=== PATIENT | female | born 1970 | race Caucasian/White ===

== ENCOUNTER 2019-05-18 20:34 | Emergency (ER) | payer OTHER ==
[~2019-05-18] VITALS: Ht 165.1 cm; Wt 66.0 kg
[2019-05-18] MEDS ORDERED: ASPIRIN 81MG TABLET PO ONE (22:30)
[2019-05-18] MEDS ORDERED: VISCOUS LIDOCAINE 2% 15 ML UDC PO ONE (22:30)
[2019-05-18] MEDS ORDERED: MAGNESIUM/ALUMINUM HYDROXIDE/SIMETHICONE 30ML UDC PO ONE (22:30)
[2019-05-18 23:13] LABS: BASOPHILS % 0.7 % (0.0-2.0); EOSINOPHILS % 0.7 % (0.0-5.0); HEMATOCRIT. 32.5 % (36.0-48.0); LYMPHOCYTES % 32.1 % (20.0-50.0); MEAN CORPUSCULAR HEMOGLOBIN 29.6 pg (28.0-32.0); MEAN CORPUSCULAR VOLUME 87.7 fL (81.0-99.0); MEAN PLATELET VOLUME 9.1 fl (7.4-10.4); MONOCYTES % 6.4 % (2.0-8.0); NEUTROPHILS % 60.1 % (40.0-76.0); PLATELET 198 x1000/uL (130-400); RED BLOOD CELL COUNT 3.71 mill/uL (4.2-5.4); RED CELL DISTRIBUTION WIDTH 13.2 % (11.6-14.6)
[2019-05-18 23:16] LABS: CHLORIDE 108 mEq/L (98-107)
[2019-05-19 02:40] VITALS: BP 102/50
== END 2019-05-19 02:40 | disposition home or self-care (01) ==
LOC: ER 20:34
DX: R07.89 Other chest pain (principal)
CPT/HCPCS: 36415; 71045; 80053; 83880; 84484; 85025; 93005; 99284; Z7610

== ENCOUNTER 2019-07-23 13:22 | Inpatient (IN) | payer OTHER ==
[~2019-07-23] VITALS: Ht 167.6 cm; Wt 56.5 kg
[2019-07-23 14:21] LABS: CLARITY URINE CLOUDY (CLEAR); COLOR URINE DARK YELLOW (YELLOW); KETONES URINE 1+ (NEGATIVE); LEUKOCYTE ESTERASE URINE 2+ (NEGATIVE); NITRITE URINE POSITIVE (NEGATIVE); OCCULT BLOOD URINE NEGATIVE (NEGATIVE); PH URINE 5.5 (4.5-8.0); PROTEIN URINE 1+ (NEGATIVE); SPECIFIC GRAVITY URINE 1.027 (1.005-1.030)
[2019-07-23 14:43] LABS: BASOPHILS % 0.7 % (0.0-2.0); EOSINOPHILS % 0.3 % (0.0-5.0); HEMATOCRIT. 45.7 % (36.0-48.0); HEMOGLOBIN. 15.3 g/dL (12.0-16.0); MEAN CORPUSCULAR HEMOGLOBIN 29.9 pg (28.0-32.0); MEAN CORPUSCULAR VOLUME 89.4 fL (81.0-99.0); MEAN PLATELET VOLUME 8.9 fl (7.4-10.4); MONOCYTES % 3.1 % (2.0-8.0); NEUTROPHILS % 83.9 % (40.0-76.0); PLATELET 224 x1000/uL (130-400); RED BLOOD CELL COUNT 5.11 mill/uL (4.2-5.4)
[2019-07-23] MEDS ORDERED: CEFTRIAXONE 1 G PREMIX 50 ML IV ONE (14:45)
[2019-07-23 14:47] LABS: CHLORIDE 105 mEq/L (98-107)
[2019-07-23 14:49] LABS: PROTHROMBIN TIME 10.9 sec (9.6-11.0)
[2019-07-23 14:53] LABS: HCG SCREEN NEGATIVE
[2019-07-23] MEDS ORDERED: MORPHINE SULFATE 4 MG/ML CPJ (NOT FOR IM USE) IV ONE (15:15)
[2019-07-23 16:30] VITALS: BP 132/54
[2019-07-23 16:47] VITALS: BP 132/54
[2019-07-23] MEDS ORDERED: FAMO-135 PO (17:03)
[2019-07-23] MEDS ORDERED: CLONIDINE 0.1MG TABLET PO PRN (17:30)
[2019-07-23] MEDS ORDERED: ACETAMINOPHEN 325MG TABLET PO PRN (17:30)
[2019-07-23] MEDS ORDERED: ONDANSETRON HCL 4MG/2ML INJ IV PRN (17:30)
[2019-07-23] MEDS ORDERED: PIPERACILLIN/TAZ 3.375G PREMIX 50 ML IV SCH (17:30)
[2019-07-23] MEDS: MORPHINE SULFATE 2 MG/ML CPJ (NOT FOR IM USE) IV PRN ×2 (18:02→22:20)
[2019-07-23] MEDS: LACTATED RINGERS 1,000 ML IV SCH (18:21)
[2019-07-23] MEDS ORDERED: POTASSIUM CHLORIDE INJ 40 MEQ in DEXT 5% WATER 250 ML IV NR (20:00)
[2019-07-23 20:20] VITALS: BP 125/52
[2019-07-23] MEDS: PIPERACILLIN/TAZOBACTAM 2.25 G in DEXTROSE 5% WATER 50 ML IV SCH (21:14)
[2019-07-23 23:55] VITALS: BP 127/60
[2019-07-24] MEDS: LACTATED RINGERS 1,000 ML IV SCH ×2 (02:11→09:30)
[2019-07-24] MEDS: PIPERACILLIN/TAZOBACTAM 2.25 G in DEXTROSE 5% WATER 50 ML IV SCH ×4 (02:11→20:49)
[2019-07-24] MEDS: MORPHINE SULFATE 2 MG/ML CPJ (NOT FOR IM USE) IV PRN ×3 (02:12→22:27)
[2019-07-24 04:00] VITALS: BP 119/51
[2019-07-24 06:04] LABS: BASOPHILS % 0.1 % (0.0-2.0); HEMATOCRIT. 38.6 % (36.0-48.0); HEMOGLOBIN. 13.2 g/dL (12.0-16.0); LYMPHOCYTES % 9.7 % (20.0-50.0); MEAN CORPUSCULAR HEMOGLOBIN 30.1 pg (28.0-32.0); MEAN CORPUSCULAR VOLUME 88.3 fL (81.0-99.0); MEAN PLATELET VOLUME 9.2 fl (7.4-10.4); MONOCYTES % 3.7 % (2.0-8.0); NEUTROPHILS % 86.5 % (40.0-76.0); PLATELET 234 x1000/uL (130-400); RED BLOOD CELL COUNT 4.38 mill/uL (4.2-5.4); RED CELL DISTRIBUTION WIDTH 13.8 % (11.6-14.6)
[2019-07-24 06:46] LABS: *AMPHETAMINES SCREEN URINE NEGATIVE (NEGATIVE)
[2019-07-24 06:47] LABS: *BARBITURATES SCREEN URINE NEGATIVE (NEGATIVE); *BENZODIAZEPINES SCREEN URINE NEGATIVE (NEGATIVE); *COCAINE SCREEN URINE NEGATIVE (NEGATIVE)
[2019-07-24 06:48] LABS: CANNABINOID URINE SCREEN NEGATIVE (NEGATIVE); METHADONE URINE SCREEN NEGATIVE (NEGATIVE); PHENCYCLIDINE URINE SCREEN NEGATIVE (NEGATIVE)
[2019-07-24 06:50] LABS: CHLORIDE 104 mEq/L (98-107)
[2019-07-24 06:54] LABS: OPIATES URINE SCREEN PRESUMTIVE POSITIVE (NEGATIVE)
[2019-07-24 07:56] VITALS: BP 107/41
[2019-07-24 12:06] VITALS: BP 123/55
[2019-07-24 16:52] LABS: AMYLASE 587 IU/L (25-115)
[2019-07-24] MEDS ORDERED: FAMOTIDINE 40MG TABLET PO SCH (17:15)
[2019-07-24 20:22] VITALS: BP 110/54
[2019-07-25 00:35] VITALS: BP 96/53
[2019-07-25] MEDS: PIPERACILLIN/TAZOBACTAM 2.25 G in DEXTROSE 5% WATER 50 ML IV SCH ×4 (01:54→20:27)
[2019-07-25] MEDS: LACTATED RINGERS 1,000 ML IV SCH ×2 (01:54→10:15)
[2019-07-25 04:00] VITALS: BP 95/52
[2019-07-25 06:44] LABS: HEMATOCRIT. 37.5 % (36.0-48.0); HEMOGLOBIN. 12.6 g/dL (12.0-16.0); LYMPHOCYTES % 9.1 % (20.0-50.0); MEAN CORPUSCULAR HEMOGLOBIN 29.8 pg (28.0-32.0); MEAN PLATELET VOLUME 9.4 fl (7.4-10.4); NEUTROPHILS % 85.9 % (40.0-76.0); PLATELET 200 x1000/uL (130-400); RED BLOOD CELL COUNT 4.22 mill/uL (4.2-5.4); RED CELL DISTRIBUTION WIDTH 13.9 % (11.6-14.6)
[2019-07-25 06:52] LABS: CHLORIDE 103 mEq/L (98-107)
[2019-07-25 07:06] LABS: AMYLASE 446 IU/L (25-115)
[2019-07-25 08:00] VITALS: BP 91/45
[2019-07-25] MEDS ORDERED: POTASSIUM CHLORIDE INJ 40 MEQ in DEXT 5% WATER 250 ML IV SCH (11:00)
[2019-07-25 12:00] VITALS: BP 103/55
[2019-07-25 16:00] VITALS: BP 114/62
[2019-07-25] MEDS ORDERED: POTASSIUM CHLORIDE 20MEQ TABLET SR PO NR (17:00)
[2019-07-25] MEDS: DEXT 5%/0.45% NACL KCL 20MEQ/L 1,000 ML IV SCH (18:15)
[2019-07-25] MEDS ORDERED: FAMOTIDINE 20MG TABLET PO SCH (18:30)
[2019-07-25] MEDS: FAMOTIDINE 20MG TABLET PO SCH (20:07)
[2019-07-25 20:15] VITALS: BP 104/50
[2019-07-26 00:05] VITALS: BP 108/62
[2019-07-26] MEDS: DEXT 5%/0.45% NACL KCL 20MEQ/L 1,000 ML IV SCH ×3 (01:21→18:22)
[2019-07-26] MEDS: PIPERACILLIN/TAZOBACTAM 2.25 G in DEXTROSE 5% WATER 50 ML IV SCH ×4 (01:21→22:01)
[2019-07-26] MEDS: MORPHINE SULFATE 2 MG/ML CPJ (NOT FOR IM USE) IV PRN (01:23)
[2019-07-26 04:45] VITALS: BP 106/59
[2019-07-26] MEDS ORDERED: INDOCYANINE GREEN 25 MG VIAL IV ONE (06:24)
[2019-07-26] MEDS ORDERED: SKIN ADHESIVE 0.7 GM EA TOP ONE (06:25)
[2019-07-26] MEDS ORDERED: LIDOCAINE HCL 1% 20ML VIAL (Pyxis) INJ ONE (06:25)
[2019-07-26] MEDS ORDERED: BUPIVACAINE HCL 0.5% (5MG/ML) 50ML ONE (06:25)
[2019-07-26] MEDS ORDERED: BACITRACIN 50,000 UNITS/VIAL ONE (06:26)
[2019-07-26 06:46] LABS: CHLORIDE 106 mEq/L (98-107)
[2019-07-26 06:48] LABS: BASOPHILS % 0.1 % (0.0-2.0); HEMATOCRIT. 33.5 % (36.0-48.0); HEMOGLOBIN. 11.4 g/dL (12.0-16.0); LYMPHOCYTES % 7.2 % (20.0-50.0); MEAN CORPUSCULAR HEMOGLOBIN 30.2 pg (28.0-32.0); MEAN CORPUSCULAR VOLUME 88.8 fL (81.0-99.0); MEAN PLATELET VOLUME 9.1 fl (7.4-10.4); MONOCYTES % 5.4 % (2.0-8.0); NEUTROPHILS % 87.3 % (40.0-76.0); PLATELET 179 x1000/uL (130-400); RED BLOOD CELL COUNT 3.78 mill/uL (4.2-5.4); RED CELL DISTRIBUTION WIDTH 13.7 % (11.6-14.6)
[2019-07-26 06:51] LABS: AMYLASE 163 IU/L (25-115)
[2019-07-26] MEDS ORDERED: FENTANYL CITRATE/PF 50MCG/ML 2ML VIAL ONE (07:40)
[2019-07-26] MEDS ORDERED: MIDAZOLAM HCL 2 MG/2 ML VIAL ONE (07:40)
[2019-07-26] MEDS ORDERED: PROPOFOL 200MG/20ML VIAL IV ONE (07:40)
[2019-07-26] MEDS ORDERED: LIDOCAINE HCL/PF 1% 10 MG/ML 5ML VIAL ONE (07:41)
[2019-07-26] MEDS ORDERED: ROCURONIUM BROMIDE 10MG/ML VIAL 5ML IV ONE (07:49)
[2019-07-26] MEDS ORDERED: SUCCINYLCHOLINE CHLORIDE 200MG/10ML IV ONE (07:49)
[2019-07-26] MEDS ORDERED: EPHEDRINE SULFATE 50MG/ML VIAL ONE (08:05)
[2019-07-26] MEDS ORDERED: DEXAMETHASONE 4MG/ML 1ML VIAL ONE (10:24)
[2019-07-26] MEDS ORDERED: KETOROLAC 30MG/ML VIAL ONE (10:24)
[2019-07-26] MEDS ORDERED: ONDANSETRON HCL 4MG/2ML INJ ONE (10:24)
[2019-07-26] MEDS ORDERED: GLYCOPYRROLATE 0.2 MG/ML 2ML VIAL ONE (10:32)
[2019-07-26] MEDS ORDERED: NEOSTIGMINE METHYLSULFATE 1MG/ML 10 ML VIAL ONE (10:32)
[2019-07-26] MEDS ORDERED: HYDROMORPHONE HCL/PF 2MG/ML CPJ IV PRN ×2 (11:00→11:30)
[2019-07-26 12:00] VITALS: BP 98/47
[2019-07-26] MEDS ORDERED: POTASSIUM CHLORIDE INJ 40 MEQ in DEXT 5% WATER 250 ML IV SCH (14:00)
[2019-07-26 16:00] VITALS: BP 106/49
[2019-07-26] MEDS: FAMOTIDINE 20MG TABLET PO SCH ×2 (17:12→21:33)
[2019-07-26 20:00] VITALS: BP 90/43
[2019-07-26 23:58] VITALS: BP 87/48
[2019-07-27 02:44] VITALS: BP 89/46
[2019-07-27] MEDS: PIPERACILLIN/TAZOBACTAM 2.25 G in DEXTROSE 5% WATER 50 ML IV SCH ×3 (04:27→13:23)
[2019-07-27 05:19] VITALS: BP 91/46
[2019-07-27 05:47] LABS: HEMATOCRIT 27.8 % (36.0-48.0); HEMOGLOBIN 9.1 g/dL (12.0-16.0); MEAN CORPUSCULAR HEMOGLOBIN 30.8 pg (28.0-32.0); PLATELET 155 x1000/uL (130-400); RED BLOOD CELL COUNT 2.96 mill/uL (4.2-5.4); RED CELL DISTRIBUTION WIDTH 14.8 % (11.6-14.6)
[2019-07-27 05:53] LABS: CHLORIDE 108 mEq/L (98-107)
[2019-07-27 08:00] VITALS: BP 90/43
[2019-07-27] MEDS: FAMOTIDINE 20MG TABLET PO SCH (08:37)
[2019-07-27] MEDS: DEXT 5%/0.45% NACL KCL 20MEQ/L 1,000 ML IV SCH (08:38)
[2019-07-27 12:00] VITALS: BP 92/43
[2019-07-27] MEDS ORDERED: HYDR-4001 MT (13:48)
[2019-07-27 14:55] VITALS: BP 92/43
[2019-07-27 16:00] VITALS: BP 116/51
== END 2019-07-27 16:19 | disposition home or self-care (01) | DRG 853 ==
LOC: ER 13:22 → 6WST 15:45 → ENRESERV 15:52
PROVIDERS: ADMIT Internal Medicine; ATTEND Internal Medicine
PROC: 0FT44ZZ Resection of Gallbladder, Percutaneous Endoscopic Approach (ICD-10-PCS; principal; 2019-07-26)
PROC: 8E0W4CZ Robotic Assisted Procedure of Trunk Region, Percutaneous Endoscopic Approach (ICD-10-PCS; 2019-07-26)
DX: A41.9 Sepsis, unspecified organism (principal); K85.10 Biliary acute pancreatitis without necrosis or infection; R18.8 Other ascites; K80.00 Calculus of gallbladder with acute cholecystitis without obstruction; E87.6 Hypokalemia; K21.9 Gastro-esophageal reflux disease without esophagitis; R82.71 Bacteriuria
CPT/HCPCS: 36415; 74181; 76705; 78227; 80048; 80053; 80076; 80305; 81003; 82150; 82248; 82962; 84703; 85025; 85027; 88304; 96365; 99285; A9537; J0330; J0696; J1100; J1170; J1885; J2250; J2270; J2405; J2543; J2704; J2710; J3010; J3480; J3490; J7060; J7120; Q9957